=== PATIENT | female | born 1970 | race Caucasian/White ===

== ENCOUNTER 2021-09-18 01:43 | Day surgery (SDCO) | payer OTHER ==
[~2021-09-18] VITALS: Ht 152 cm; Wt 60.3 kg
[2021-09-18 02:18] LABS: BASOPHIL 0.7 % (0-2); EOSINOPHIL 2.1 % (0-5); HCT 37.2 % (37.0-47.0); HGB 12.1 g/dl (12.5-16.0); MCH 27.9 pg (25.0-31.0); MCHC 32.5 g/dL (32.0-36.0); MCV 85.9 fL (78.0-100.0); MONOCYTE 8.4 % (0-12); MPV 9.3 fL (6.0-9.5); NEUTROPHIL 45.7 % (41-80); NRBC 0; PLT 332 K/uL (150-400); RBC 4.33 M/uL (4.20-5.40); RDW 14.7 % (11.5-14.0); WBC 8.5 K/uL (4.0-10.5)
[2021-09-18 02:29] LABS: INR 1.05 (0.9-1.2); PROTHROMBIN TIME 13.1 SECONDS (11.8-13.4)
[2021-09-18 02:30] LABS: PTT 31.7 SECONDS (24.4-34.7)
[2021-09-18 02:44] LABS: ALBUMIN 3.2 g/dL (3.4-5.0); BILIRUBIN - TOTAL 0.2 mg/dL (0.2-1.0); CREATININE 0.82 mg/dL (0.51-0.95); GLOBULIN (CALCULATION) 3.5 g/dL; TOTAL PROTEIN 6.7 g/dL (6.4-8.2)
[2021-09-18 07:10] LABS: BASOPHIL 0.6 % (0-2); EOSINOPHIL 3.2 % (0-5); HCT 36.3 % (37.0-47.0); HGB 11.7 g/dl (12.5-16.0); LYMPHOCYTE 46.6 % (15-48); MCH 28.4 pg (25.0-31.0); MCHC 32.2 g/dL (32.0-36.0); MCV 88.1 fL (78.0-100.0); MONOCYTE 8.5 % (0-12); MPV 9.2 fL (6.0-9.5); NRBC 0; PLT 315 K/uL (150-400); RBC 4.12 M/uL (4.20-5.40); RDW 14.6 % (11.5-14.0); WBC 8.3 K/uL (4.0-10.5)
[2021-09-18 07:24] LABS: BUN/CREAT RATIO (CALC) 20.7 RATIO; CREATININE 0.82 mg/dL (0.51-0.95)
[2021-09-18] MEDS ORDERED: LIPITOR40 MG PO (10:37)
[2021-09-18] MEDS ORDERED: PLAVIX75 MG PO (10:37)
[2021-09-18] MEDS ORDERED: NORVASC5 MG PO (10:37)
[2021-09-18] MEDS ORDERED: ASPIRIN EC81 MG PO (10:38)
[2021-09-18] MEDS ORDERED: ISOSORBIDE DINI20 M1 PO ×2 (10:38→10:42)
[2021-09-18] MEDS ORDERED: COREG 6.25MG6.25 MG PO ×2 (10:38→10:42)
[2021-09-18] MEDS ORDERED: NITROQUIK SL0.4 MG SL (10:39)
[2021-09-18] MEDS ORDERED: PEPCID AC20 MG PO ×2 (10:39→10:42)
[2021-09-18] MEDS ORDERED: NITROGLYCERIN0.4 MG SL (10:42)
== END 2021-09-18 11:40 | disposition home or self-care (01) ==
LOC: FER 01:43 → FTCU 04:07
PROVIDERS: Allergy & Immunology; Emergency Medicine Emergency Medical Services; ADMIT Internal Medicine
DX: R07.89 Other chest pain (principal); I25.10 Atherosclerotic heart disease of native coronary artery without angina pectoris; I10 Essential (primary) hypertension; E78.5 Hyperlipidemia, unspecified; J44.9 Chronic obstructive pulmonary disease, unspecified; F32.A Depression, unspecified; F41.9 Anxiety disorder, unspecified; F17.200 Nicotine dependence, unspecified, uncomplicated; Z95.818 Presence of other cardiac implants and grafts; Z20.822 Contact with and (suspected) exposure to COVID-19; Z79.01 Long term (current) use of anticoagulants; Z79.82 Long term (current) use of aspirin; Z79.899 Other long term (current) drug therapy; Z98.51 Tubal ligation status
CPT/HCPCS: 36415; 71045; 80048; 80053; 80061; 84484; 85025; 85610; 85730; 93005; 94010; 96372; G0378; J1650; J2270; J2405; J7040; U0002